=== PATIENT | female | born 1945 | race Caucasian/White ===

== ENCOUNTER 2017-02-17 08:27 | Outpatient (CLI) | payer MEDICARE, OTHER | END 2017-02-17 08:28 | disposition home or self-care (01) | DX: E78.5 Hyperlipidemia, unspecified (principal); I25.10 Atherosclerotic heart disease of native coronary artery without angina pectoris ==

== ENCOUNTER 2017-02-17 09:51 | Outpatient (CLI) | payer MEDICARE, OTHER ==
[2017-02-17] MEDS ORDERED: BARIUM SULFATE 454 GM TUBE PO ONE (10:29)
== END 2017-02-17 09:52 | disposition home or self-care (01) ==
DX: R13.10 Dysphagia, unspecified (principal); E78.5 Hyperlipidemia, unspecified; I25.10 Atherosclerotic heart disease of native coronary artery without angina pectoris
CPT/HCPCS: 36415; 74230; 80053; 80061; 82550; 85027; 92611; G8996; G8997; G8998

== ENCOUNTER 2017-03-13 11:25 | Outpatient (CLI) | payer MEDICARE, OTHER | END 2017-03-13 11:26 | disposition home or self-care (01) | DX: J02.9 Acute pharyngitis, unspecified (principal) ==

== ENCOUNTER 2017-03-17 12:12 | Day surgery (SDC) | payer MEDICARE, OTHER ==
[2017-03-17] MEDS ORDERED: LACTATED RINGERS 1,000 ML IV ONE (12:57)
[2017-03-17] MEDS ORDERED: MIDAZOLAM 2 MG/2 ML VIAL IVP ONE (14:00)
[2017-03-17] MEDS ORDERED: fentaNYL 100 MCG/2 ML VIAL IVP ONE (14:00)
[2017-03-17] MEDS ORDERED: PROPOFOL 200 MG/20 ML VIAL IVP ONE (14:00)
[2017-03-17] MEDS ORDERED: LIDOCAINE-MPF 2% 5 ML VIAL IM ONE (14:00)
[2017-03-17] MEDS ORDERED: BUPIVACAINE 0.5% PF 30 ML VIAL SUBQ ONE ×2 (14:10)
[2017-03-17] MEDS ORDERED: LIDOCAINE 1%-EPI 1:100000 30 ML MDV SUBQ ONE ×2 (14:10)
[2017-03-17] MEDS ORDERED: CLINDAMYCIN 600 MG/50 ML 50 ML IV ONE (14:15)
[2017-03-17] MEDS ORDERED: HYDROcod/ACETAM 5/325 MG TABLET ONE (15:27)
== END 2017-03-17 12:13 | disposition home or self-care (01) ==
PROC: 02HV33Z Insertion of Infusion Device into Superior Vena Cava, Percutaneous Approach (ICD-10-PCS; principal; 2017-03-17 13:30)
DX: M05.9 Rheumatoid arthritis with rheumatoid factor, unspecified (principal); I10 Essential (primary) hypertension; E11.9 Type 2 diabetes mellitus without complications; J45.909 Unspecified asthma, uncomplicated; I25.10 Atherosclerotic heart disease of native coronary artery without angina pectoris; Z95.5 Presence of coronary angioplasty implant and graft; Z87.891 Personal history of nicotine dependence; R13.10 Dysphagia, unspecified; F41.8 Other specified anxiety disorders; G47.33 Obstructive sleep apnea (adult) (pediatric); Z88.0 Allergy status to penicillin; Z88.1 Allergy status to other antibiotic agents; I25.2 Old myocardial infarction
CPT/HCPCS: 36561; 71010; A9270; C1788; J7120

== ENCOUNTER 2017-05-05 11:53 | Outpatient (CLI) | payer MEDICARE, OTHER ==
[2017-05-05 12:28] LABS: HCT - HEMATOCRIT 38.4 % (37.0-47.0); HGB - HEMOGLOBIN 12.6 g/dL (12.0-16.0); MEAN CORPUSCULAR HEMOGLOBIN 30.1 pg (27.0-31.0); MEAN CORPUSCULAR HGB CONC 32.8 g/dL (32.0-36.0); MEAN CORPUSCULAR VOLUME 91.7 fL (81.0-99.0); RED BLOOD COUNT 4.19 10^6/uL (4.20-5.40); RED CELL DISTRIBUTION WIDTH 13.8 % (12.0-15.0); WHITE BLOOD COUNT 6.3 x10^3/uL (4.8-10.8)
[2017-05-05 12:39] LABS: ALBUMIN/GLOBULIN RATIO 1.1 (1.0-2.2); BILIRUBIN,TOTAL 0.9 mg/dL (0.2-1.0); BUN - BLOOD UREA NITROGEN 26 mg/dL (6-20); CALCIUM 9.6 mg/dL (8.5-10.3); CARBON DIOXIDE - CO2 28 mmol/L (21-32); CHLORIDE 103 mmol/L (101-111); CHOL/HDL RATIO 4.3 (<4.4); CHOLESTEROL 117 mg/dL; CREATININE 1.2 mg/dL (0.4-1.0); GFR - MDRD 44 (>89); GLUCOSE 111 mg/dL (70-100); HDL CHOLESTEROL 27 mg/dL; LDL/HDL RATIO 2.7 (<4.4); POTASSIUM 4.6 mmol/L (3.5-5.0); SODIUM 140 mmol/L (135-145); TOTAL PROTEIN 7.5 g/dL (6.7-8.2); TRIGLYCERIDES 79 mg/dL; VLDL CHOLESTEROL 16 mg/dL
== END 2017-05-05 11:54 | disposition home or self-care (01) ==
LOC: LAB 11:53
PROVIDERS: ATTEND Internal Medicine Cardiovascular Disease
DX: E78.5 Hyperlipidemia, unspecified (principal); I25.10 Atherosclerotic heart disease of native coronary artery without angina pectoris
CPT/HCPCS: 36415; 80053; 80061; 82550

== ENCOUNTER 2017-07-03 08:00 | Outpatient (CLI) | payer MEDICARE, OTHER ==
[2017-07-03 12:19] LABS: ALBUMIN/GLOBULIN RATIO 1.2 (1.0-2.2); BILIRUBIN,TOTAL 0.7 mg/dL (0.2-1.0); BUN - BLOOD UREA NITROGEN 25 mg/dL (6-20); CARBON DIOXIDE - CO2 26 mmol/L (21-32); CHLORIDE 103 mmol/L (101-111); CHOL/HDL RATIO 3.7 (<4.4); CHOLESTEROL 130 mg/dL; CREATININE 1.3 mg/dL (0.4-1.0); GFR - MDRD 40 (>89); GLUCOSE 165 mg/dL (70-100); HDL CHOLESTEROL 35 mg/dL; LDL/HDL RATIO 1.9 (<4.4); POTASSIUM 4.2 mmol/L (3.5-5.0); SODIUM 138 mmol/L (135-145); TOTAL PROTEIN 6.9 g/dL (6.7-8.2); TRIGLYCERIDES 138 mg/dL; VLDL CHOLESTEROL 28 mg/dL
== END 2017-07-03 08:01 ==
LOC: LAB.R 08:00
PROVIDERS: ATTEND Internal Medicine Cardiovascular Disease
DX: E78.5 Hyperlipidemia, unspecified (principal); Z79.899 Other long term (current) drug therapy
CPT/HCPCS: 80053; 80061; 82550

== ENCOUNTER 2017-08-28 15:20 | Outpatient (CLI) | payer MEDICARE, OTHER ==
[2017-08-28 15:31] LABS: BASOPHILS % (AUTO) 0.6 %; EOSINOPHILS # (AUTO) 0.5 10^3/uL (0.0-0.7); EOSINOPHILS % (AUTO) 7.1 %; HCT - HEMATOCRIT 37.9 % (37.0-47.0); HGB - HEMOGLOBIN 12.5 g/dL (12.0-16.0); LYMPHOCYTES # (AUTO) 1.1 10^3/uL (1.5-3.5); LYMPHOCYTES % (AUTO) 15.2 %; MEAN CORPUSCULAR VOLUME 90.7 fL (81.0-99.0); MEAN PLATELET VOLUME 7.4 fL (7.9-10.8); MONOCYTES # (AUTO) 0.5 10^3/uL (0.0-1.0); MONOCYTES % (AUTO) 6.7 %; NEUTROPHILS % (AUTO) 70.4 %; NUCLEATED RED BLOOD CELLS AUTO 0.1 /100WBC; RED BLOOD COUNT 4.18 10^6/uL (4.20-5.40); RED CELL DISTRIBUTION WIDTH 14.7 % (12.0-15.0); UNCORRECTED WHITE BLOOD COUNT 7.1 x10^3/uL; WHITE BLOOD COUNT 7.1 x10^3/uL (4.8-10.8)
[2017-08-28 15:35] LABS: ALBUMIN/GLOBULIN RATIO 1.1 (1.0-2.2); BILIRUBIN,TOTAL 0.5 mg/dL (0.2-1.0); BUN - BLOOD UREA NITROGEN 19 mg/dL (6-20); CALCIUM 9.3 mg/dL (8.5-10.3); CARBON DIOXIDE - CO2 25 mmol/L (21-32); CHLORIDE 104 mmol/L (101-111); CHOL/HDL RATIO 4.3 (<4.4); CHOLESTEROL 130 mg/dL; CREATININE 1.4 mg/dL (0.4-1.0); GFR - MDRD 37 (>89); GLUCOSE 90 mg/dL (70-100); HDL CHOLESTEROL 30 mg/dL; POTASSIUM 4.3 mmol/L (3.5-5.0); SODIUM 139 mmol/L (135-145); TRIGLYCERIDES 198 mg/dL; VLDL CHOLESTEROL 40 mg/dL
== END 2017-08-28 15:21 | disposition home or self-care (01) ==
LOC: LAB.R 15:20
PROVIDERS: ATTEND Nurse Anesthetist, Certified Registered
DX: E78.5 Hyperlipidemia, unspecified (principal); D64.9 Anemia, unspecified; Z79.899 Other long term (current) drug therapy
CPT/HCPCS: 80053; 80061; 82550; 85025

== ENCOUNTER 2017-09-22 12:51 | Outpatient (CLI) | payer MEDICARE, OTHER ==
[2017-09-22 18:48] LABS: CHOL/HDL RATIO 3.5 (<4.4); CHOLESTEROL 149 mg/dL; HDL CHOLESTEROL 42 mg/dL; LDL CHOLESTEROL,DIRECT 93 mg/dL; LDL/HDL RATIO 1.8 (<4.4); TRIGLYCERIDES 160 mg/dL; VLDL CHOLESTEROL 32 mg/dL
== END 2017-09-22 12:52 | disposition home or self-care (01) ==
LOC: LAB.F 12:51
PROVIDERS: ATTEND Internal Medicine Cardiovascular Disease
DX: E78.5 Hyperlipidemia, unspecified (principal); Z79.899 Other long term (current) drug therapy
CPT/HCPCS: 36415; 80061; 82550

== ENCOUNTER 2018-04-21 10:35 | Emergency (ER) | payer MEDICARE, OTHER ==
[2018-04-21 10:42] VITALS: BP 141/78
[2018-04-21] MEDS ORDERED: cefTRIAXone 1 GM VIAL IM STA (11:04)
[2018-04-21] MEDS ORDERED: LIDOCAINE 1% 2 ML VIAL SUBQ ONE (11:04)
--- NOTE | 2018-04-21 11:08 | ED Physician Documentation ---
PD HPI LOWER EXT INJURY - Stated complaint Stated Complaint: LT LEG PX - Chief complaint Chief Complaint: Ext Problem - History obtained from History obtained from: Patient, Family - History of Present Illness PD HPI LOW EXT INJURY LOCATION: Left, Toe (great) Type of injury: Fall Where injury occurred: Home Timing - onset: How many days ago (2) Timing - duration: Days (2) Timing - details: Gradual onset, Still present Improved by: Rest, Immobilization Worsened by: Moving, Palpating Associated symptoms: No: Weakness, Numbness, Tingling Similar symptoms before: Diagnosis (ankle fracture) Recently seen: Not recently seen - Additional information Additional information: 73-year-old female was getting up out of her easy chair when she fell onto her left great toe. She injured the left great toe and has some swelling and tenderness and a blister has broken and there is redness now. Review of Systems Constitutional: denies: Fever, Chills Eyes: denies: Decreased vision Ears: denies: Ear pain Nose: denies: Reviewed and negative Cardiac: denies: Palpitations Respiratory: denies: Dyspnea, Cough GI: denies: Vomiting Skin: denies: Rash Musculoskeletal: reports: Joint pain, Pain with weight bearing. denies: Neck pain Neurologic: denies: Generalized weakness, Focal weakness, Numbness PD PAST MEDICAL HISTORY - Past Medical History Past Medical History: Yes Cardiovascular: Hypertension, Coronary artery disease, MS Respiratory: Asthma, Sleep apnea, CPAP use Endocrine/Autoimmune: Type 2 diabetes GI: GERD : None, Other HEENT: None Psych: Depression, Other Musculoskeletal: Rheumatoid arthritis Derm: None - Past Surgical History Past Surgical History: Yes General: Colonoscopy Cardiovascular: Coronary stent HEENT: Tonsil/Adenoidectomy - Present Medications Home Medications: Ambulatory Orders Medication Instructions Recorded Confirmed Gabapentin 300 mg PO TID 12/08/13 04/21/18 Clopidogrel [Plavix] 75 mg PO DAILY MDD FRI/FRI/FRI only 12/13/13 04/21/18 Duloxetine HCl [Cymbalta] 60 mg PO DAILY PM 12/13/13 04/21/18 Hydrocodone/Acetaminophen 1 - 2 tab PO Q6H PRN #20 tablet 12/10/14 04/21/18 [Hydrocodon-Acetaminophen 5-325] Eszopiclone [Lunesta] 2 mg PO QPM 08/18/15 04/21/18 Glimepiride 2 mg PO DAILY 08/02/16 04/21/18 Atorvastatin Calcium [Atorvastatin 40 mg PO DAILY PM 08/28/17 04/21/18 Calcium] Folic Acid 2 mg PO DAILY 08/28/17 04/21/18 Losartan Potassium 25 mg PO DAILY 08/28/17 04/21/18 azaTHIOprine [Azathioprine] 100 mg PO DAILY 08/28/17 04/21/18 Sulfamethoxazole/Trimethoprim 1 each PO BID #14 tablet 04/21/18 [Sulfamethoxazole-Tmp Ds Tablet] azaTHIOprine [Imuran] 1 tab PO DAILY 04/21/18 04/21/18 raNITIdine [Zantac] 1 tab PO QPM 04/21/18 04/21/18 - Allergies Allergies/Adverse Reactions: Allergies Allergy/AdvReac Type Severity Reaction Status Date / Time amoxicillin Allergy Rash Verified 04/21/18 10:42 - Social History Does the pt smoke?: No Smoking Status: Never smoker Does the pt drink ETOH?: Yes Does the pt have substance abuse?: No - Immunizations Immunizations are current?: Yes - POLST Patient has POLST: No PD ED PE NORMAL - Vitals Vital signs reviewed: Yes (hypertensive ) - General General: Alert and oriented X 3, No acute distress - HEENT HEENT: Atraumatic, PERRL, EOMI - Respiratory Respiratory: No respiratory distress - Derm Derm: Normal color, Warm and dry, No rash - Extremities Extremities: Other (There is swelling redness and tenderness with a deflated blister over the dorsum of the MTP joint. There is no lymphangitic streaking and the redness ends over the distal MT. ) - Neuro Neuro: No motor deficit, No sensory deficit Eye Opening: Spontaneous Motor: Obeys Commands Verbal: Oriented GCS Score: 15 - Psych Psych: Normal mood, Normal affect Results - Vitals Vitals: Vital Signs - 24 hr 04/21/18 10:38 Temperature 36.4 C L Heart Rate 85 Respiratory 16 Rate Blood Pressure 141/78 H O2 Saturation 97 Oxygen O2 Source Room air - Labs Labs: Laboratory Tests 04/21/18 11:00 POC Whole Bld Glucose 143 H - Rads (name of study) left foot Radiology: Prelim report reviewed (Impression: 1. Acute nondisplaced intra- articular fracture of the base of the proximal phalanx of the great toe. 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 Departure - Departure Disposition: 01 Home, Self Care Clinical Impression: Staph skin infection Phalanges fracture, foot Qualifiers: Encounter type: initial encounter Toe: great toe Fracture type: closed Phalanx : proximal Fracture alignment: nondisplaced Laterality: left Qualified Code(s): S92.415A - Nondisplaced fracture of proximal phalanx of left great toe, initial encounter for closed fracture Condition: Stable Instructions: ED Staph Infec Abx Tx Only, ED Fx Toe Closed Follow-Up: Irineo Garcia MD [Primary Care Provider] - Prescriptions: Sulfamethoxazole/Trimethoprim [Sulfamethoxazole-Tmp Ds Tablet] 1 each PO BID # 14 tablet Discharge Date/Time: 04/21/18 12:32
--- NOTE | 2018-04-21 11:52 | XRAY Preliminary Report ---
Exam: XR FOOT 3 VIEW LT IMPRESSION: 1. Acute nondisplaced intra-articular fracture at the base of the proximal phalanx of the great toe. 2. Hallux valgus alignment and mild degenerative osteoarthritis at the first metatarsophalangeal join osmany GUARDADO SITE ID: [id number]
--- NOTE | 2018-04-21 11:52 | XRAY Report ---
EXAM: LEFT FOOT RADIOGRAPHY EXAM DATE: 04/21/2018 11:18 AM. CLINICAL HISTORY: Great toe contusion/pain swelling. COMPARISON: Left ankle radiographs 12/25/2016. TECHNIQUE: 3 nonweightbearing views. FINDINGS: Bones: There is an acute nondisplaced intra-articular fracture at the medial aspect of the base of th e proximal phalanx of the great toe. This is best seen on frontal and oblique images. The remainder o f the visualized bones appear intact. There is partially visualized distal fibular plate and screw garcia rdware, as seen on prior ankle radiographs. Joints: No dislocation. There is hallux valgus alignment at the first metatarsophalangeal joint with mild joint space narrowing and marginal osteophyte formation. Soft Tissues: There is soft tissue swelling of the great toe. IMPRESSION: 1. Acute nondisplaced intra-articular fracture at the base of the proximal phalanx of the great toe. 2. 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
== END 2018-04-21 12:32 | disposition home or self-care (01) ==
LOC: ED 10:35
DX: L08.9 Local infection of the skin and subcutaneous tissue, unspecified (principal); B95.8 Unspecified staphylococcus as the cause of diseases classified elsewhere; S92.415A Nondisplaced fracture of proximal phalanx of left great toe, initial encounter for closed fracture; W19.XXXA Unspecified fall, initial encounter; Y92.009 Unspecified place in unspecified non-institutional (private) residence as the place of occurrence of the external cause; I10 Essential (primary) hypertension; E11.9 Type 2 diabetes mellitus without complications; Z79.84 Long term (current) use of oral hypoglycemic drugs
CPT/HCPCS: 96372; 99283; 99284